=== PATIENT | female | born 2000 | race Two or more races ===

== ENCOUNTER 2021-01-22 11:01 | Outpatient (REF) | payer MEDICAID, SELFPAY ==
--- NOTE | ~2021-01-22 | US_ITS ---
EXAMINATION: US PELVIS CLINICAL INFORMATION: Abnormal uterine bleeding. COMPARISON: None TECHNIQUE: Ultrasound of the pelvis is performed using both transabdominal and transvaginal transducers along with Doppler. Transvaginal imaging is performed due to inadequate visualization transabdominally. FINDINGS: Uterus: The uterus is anteverted and measures 7.6 x 3.1 x 3.8 cm. The double wall endometrial thickness is 0.5 mm. The uterus is smooth in contour and has normal myometrial echogenicity. No visible fibroid. Adnexa: Both ovaries are visualized. There is normal color flow to the adnexa. There is no ovarian torsion. There is no pelvic ascites or fluid collection. Right ovary measures 3.1 x 2.0 x 2.3 cm for a volume of 7.5 mL and appears normal. Left ovary measures 2.6 x 2.4 x 2.0 cm for a volume of 6.5 mL and appears normal. A small amount of free fluid is present in the pelvis. US/US pelvic and transvaginal IMPRESSION: Normal study. A cause for the patient's uterine bleeding has not been found.
== END 2021-01-22 11:02 | disposition home or self-care (01) ==
LOC: HO.US 11:01
PROVIDERS: Visit Provider Nurse Practitioner
DX: N93.9 Abnormal uterine and vaginal bleeding, unspecified (principal)
CPT/HCPCS: 76830; 76856

== ENCOUNTER 2021-02-24 11:21 | Outpatient (REF) | payer MEDICAID, SELFPAY ==
[2021-02-24 13:14] LABS: Iron 22 mcg/dL (30-160); Percent Iron Saturation 5 % (15-50); Total Iron Binding Capacity 404 mcg/dL (228-428); Unsaturated Iron Binding 382 ug/dL
== END 2021-02-24 11:22 | disposition home or self-care (01) ==
LOC: HO.LAB 11:21
PROVIDERS: PCP Nurse Practitioner; Visit Provider Psychiatry & Neurology Neurology
DX: D64.9 Anemia, unspecified (principal)
CPT/HCPCS: 36415; 83540

== ENCOUNTER 2023-03-04 17:45 | Outpatient (REF) | payer MEDICAID, SELFPAY | END 2023-03-04 17:46 | disposition home or self-care (01) | LOC: HO.HHCLNP 17:45 | PROVIDERS: Visit Provider Advanced Practice Midwife | DX: N93.9 Abnormal uterine and vaginal bleeding, unspecified (principal) | CPT/HCPCS: 0353U ==